=== PATIENT | male | born 1955 ===

== ENCOUNTER 2018-12-13 06:35 | Day surgery (SDC) | payer OTHER ==
[~2018-12-13 06:35] MED LIST: AMBIEN10 MG PO; CLONAZEPAM0.5 MG PO; COZAAR50 MG PO; CRESTOR10 MG PO; EFFEXOR XR75 MG PO; REMERON15 MG; ZOLOFT100 MG PO; [UNRECOGNIZED DRUG - OTHER] PO
[2018-12-13] MEDS ORDERED: RECTICARE30 GM TOP (10:04)
[2018-12-13] MEDS ORDERED: PERCOCET 5-3251 EACH PO (10:04)
== END 2018-12-13 15:45 | disposition home or self-care (01) ==
LOC: CIR.AMB 06:35
DX: K60.3 Anal fistula (principal); K64.8 Other hemorrhoids